=== PATIENT | male | born 1990 | race Caucasian/White ===

== ENCOUNTER → 2019-01-28 07:22 | Outpatient (CLI) | payer MEDICAID | END | disposition home or self-care (01) | LOC: D.RAD 07:22 | PROVIDERS: ATTEND Internal Medicine Gastroenterology | DX: R13.10 Dysphagia, unspecified (principal) ==

== ENCOUNTER 2019-11-30 13:33 | Emergency (ER) | payer MEDICAID ==
[~2019-11-30] VITALS: Ht 170.2 cm; Wt 4.0 kg
[2019-11-30 13:35] VITALS: Ht 170.2 cm; Wt 4.0 kg
[2019-11-30] MEDS ORDERED: LAMICTAL100 MG PO (13:39)
[2019-11-30] MEDS ORDERED: MOBIC7.5 MG PO (13:44)
[2019-11-30] MEDS ORDERED: ZYRTEC10 MG PO (13:44)
[2019-11-30] MEDS ORDERED: OMEPRAZOLE40 MG PO (13:45)
[2019-11-30] MEDS ORDERED: EFFEXOR XR75 MG PO (13:51)
[2019-11-30] MEDS ORDERED: FLUTICASONE PRO16 GM (13:51)
[2019-11-30 14:07] LABS: BASOPHILS 0.2 % (0-2); EOSINOPHILS 0.2 % (0-7); HEMATOCRIT 44.1 % (42.0-54.0); IMMATURE GRANULOCYTES 0.4 % (0-5); LYMPHOCYTES 12.7 % (15-50); MCH 31.1 pg (26.0-34.0); MCV 91.5 fL (80.0-100.0); MEAN PLATELET VOLUME 10.3 fL (7.4-10.4); MONOCYTES 5.3 % (2-11); NEUTROPHILS 81.2 % (40-80); PLATELET COUNT 317 10x3/uL (130-400); RBC 4.82 10x6/uL (4.20-6.10); RDW 12.9 % (11.5-14.5); WBC 14.8 10x3/uL (4.8-10.8)
[2019-11-30 14:10] LABS: ANION GAP 13.4 mmol/L (8-16); CALCIUM 9.1 mg/dL (8.5-10.1); CARBON DIOXIDE 24.6 mmol/L (21.0-32.0); CREATININE - SERUM 1.3 mg/dL (0.6-1.3)
[2019-11-30 14:17] LABS: BILIRUBIN - TOTAL 0.57 mg/dL (0.2-1.3); MAGNESIUM - SERUM 2.6 mg/dL (1.8-2.4); PROTEIN - SERUM 6.9 g/dL (6.4-8.2)
[2019-11-30 14:51] LABS: APPEARANCE CLEAR (CLEAR); BILIRUBIN NEGATIVE (NEGATIVE); COLOR YELLOW (YELLOW); GLUCOSE 50 mg/dL (NEGATIVE); KETONE NEGATIVE (NEGATIVE); NITRITE NEGATIVE (NEGATIVE); PROTEIN NEGATIVE (NEGATIVE); UROBILINOGEN NORMAL (NORMAL)
[2019-11-30 15:04] LABS: UDS - AMPHET NEGATIVE QUAL (NEGATIVE); UDS - BARB NEGATIVE QUAL (NEGATIVE); UDS - BENZO NEGATIVE QUAL (NEGATIVE); UDS - COCAINE NEGATIVE QUAL (NEGATIVE); UDS - OPIATE NEGATIVE QUAL (NEGATIVE); UDS - PCP NEGATIVE QUAL (NEGATIVE); UDS - THC NEGATIVE QUAL (NEGATIVE)
[2019-11-30 17:02] VITALS: BP 104/54
== END 2019-11-30 17:03 | disposition home or self-care (01) ==
LOC: D.ER 13:33
PROVIDERS: Emergency Medicine
DX: R56.9 Unspecified convulsions (principal)